=== PATIENT | female | born 1980 | race African-American/Black ===

== ENCOUNTER 2016-03-24 13:10 | Inpatient (IN) | payer OTHER ==
[2016-03-24] MEDS ORDERED: DINOPROSTONE 10 MG VAGINAL SUPPOSITORY VG ONE (14:30)
[2016-03-24 14:32] VITALS: BMI 33.6
--- NOTE | 2016-03-24 14:43 | HP ---
Past Medical History - Primary Care Physician PCP:: Marlene Wise - Admission Chief Complaint: Premature rupture of membranes History of Present Illness: 35 yo EDC 04/05/16 EGA 38.3 with premature rupture of membranes today Hx of AMA and inc AFP screening who declined testing History Source: Patient - Past Medical History ...: 2 ...Para: 0 ...Spon : 1 ...LMP: 06/29/09 ...EDC by Sono: 04/05/16 - Past Surgical History Past Surgical History: Yes: None Hx Myomectomy: No Hx Transabdominal Cerclage: No - Smoking History Smoking history: Never smoked Have you smoked in the past 12 months: No Aproximately how many cigarettes per day: 0 - Alcohol/Substance Use Hx Alcohol Use: No - Social History Usual Living Arrangement: Yes: With Spouse History of Recent Travel: No Home Medications - Allergies Allergies/Adverse Reactions: Allergies Allergy/AdvReac Type Severity Reaction Status Date / Time lactose Allergy Severe Verified 03/24/16 11:00 nut - unspecified Allergy Severe Swelling Verified 03/24/16 11:00 salmon Allergy Severe Difficulty Uncoded 03/24/16 11:00 Breathing - Home Medications Home Medications: Ambulatory Orders Vit/Iron Fumarate/FA [ Tablet] 1 each PO DAILY 03/24/16 Review of Systems - Review of Systems Constitutional: reports: No Symptoms Eyes: reports: No Symptoms HENT: reports: No Symptoms Neck: reports: No Symptoms Cardiovascular: reports: No Symptoms Respiratory: reports: No Symptoms Gastrointestinal: reports: No Symptoms Genitourinary: reports: No Symptoms Breasts: reports: No Symptoms Reported Musculoskeletal: reports: No Symptoms Integumentary: reports: No Symptoms Neurological: reports: No Symptoms Endocrine: reports: No Symptoms Hematology/Lymphatic: reports: No Symptoms Psychiatric: reports: No Symptoms Physical Exam - Maternity Vital Signs: Vital Signs Temperature 98.1 F 03/24/16 14:17 Pulse Rate 104 H 03/24/16 14:17 Respiratory Rate 20 03/24/16 14:17 Blood Pressure 145/87 03/24/16 14:17 O2 Sat by Pulse Oximetry (%) Constitutional: Yes: Well Nourished, No Distress Cardiovascular: Yes: WNL, Regular Rate and Rhythm Breast(s): Yes: WNL - Abdominal Exam/OB Fundal Height: 130 Number of Fetuses: Single Presentation: Vertex Contractions: No Monitor Mode: External Heart Rate Location: [facility] Category: I Decelerations: None - Vaginal Exam/OB Speculum Exam: No Dilatation (cm): FT Effacement (%): 80 Amniotic Membrane Status: Ruptured Nitrazine Test: Positive Presentation: Vertex/Position Station: -2 - Physical Exam Musculoskeletal: Yes: WNL Extremities: Yes: WNL Edema: No Hemorrhage Risk Assessment - Risk Factors Risk Score: 0 Risk Level: Low Risk Problem List - Problems (1) Premature rupture of membranes Code(s): O42.90 - VLADIMIR ROM, 7TH0 BETW RUPT & ONST LABR, UNSP WEEKS OF GEST Qualifiers: PROM gestational age: full term Assessment/Plan IUP at 38.2 weeks premature rupture of membranes Plan cervidil
[2016-03-24 15:10] LABS: BASOPHIL 0.2 % (0-2.0); MCH 25.3 pg (25.7-33.7)
[2016-03-24 15:19] LABS: EOSINOPHIL 0.1 % (0-4.5); MCHC 32.1 g/dl (32.0-36.0); MEAN CELL VOLUME 78.9 fl (80-96); MEAN PLT VOLUME 11.5 fl (7.5-11.1); NEUTROPHILS 72.4 % (42.8-82.8); PLATELET COUNT 168 K/MM3 (134-434); RDW 17.7 % (11.6-15.6); WHITE BLOOD COUNT 11.9 K/mm3 (4.0-10.0)
[2016-03-24 15:25] LABS: CALCIUM 9.1 mg/dL (8.5-10.1); CREATININE 0.8 mg/dL (0.55-1.02)
[2016-03-24 15:33] LABS: HIV 1 & 2 AB NEGATIVE; HIV 1 AGp24 NEGATIVE
[2016-03-24 15:42] LABS: INR 0.98 (0.82-1.09); PROTHROMBIN TIME (PATIENT) 10.8 SEC (9.98-11.88)
[2016-03-24] MEDS: DEXTROSE 5%-LACTATED RINGERS 1,000 ML IV SCH (20:57)
[2016-03-24] MEDS ORDERED: ELECTROLYTE-148 SOLN 1,000 ML IV SCH (23:00)
[2016-03-25] MEDS ORDERED: BENZOCAINE 28 GM HEMORRHOIDAL OINTMENT TP PRN (00:24)
[2016-03-25] MEDS ORDERED: BENZOCAINE 20% 57 GM BOTTLE TP PRN (00:24)
[2016-03-25] MEDS ORDERED: BISACODYL 10 MG SUPP.RECT RC PRN (00:24)
[2016-03-25] MEDS ORDERED: METHYLERGONOVINE MALEATE 0.2 MG/1 ML AMP IM PRN (00:24)
--- NOTE | 2016-03-25 00:27 | PN ---
Delivery - Delivery Vaginal Delivery: Spontaneous Episiotomy/Laceration: Midline EBL (cc): 350 Delivery, Single - [place] Feeding Plan Initial Plan: Exclusive throughout hospitalization Remarks - Remarks Remarks: of a live girl over midline episiotomy. Nose / Oropharynx suctioned @ perineum. Cord clamped and cut. Placenta expelled spontaneously intact. Midline episiotomy repaired with 2.0 chromic.
[2016-03-25] MEDS ORDERED: D5W-LR W/ 20 UNITS OXYTOCIN 1,000 ML IV SCH (00:30)
[2016-03-25] MEDS: ACETAMINOPHEN 325 MG TABLET (FP) PO PRN (02:36)
[2016-03-25] MEDS: IBUPROFEN 600 MG TABLET (FP) PO PRN ×2 (02:36→15:20)
[2016-03-25] MEDS: FERROUS SO4 325 MG TABLET (FP) PO SCH ×3 (08:00→18:23)
[2016-03-25] MEDS ORDERED: DIPHTH,PERTUSS(ACELL),TET 0.5 ML DISP.SYRIN IM ONE (10:00)
[2016-03-25] MEDS: PRENATAL VITAMINS W/ FOLIC ACID TABLET (FP) PO SCH (10:24)
[2016-03-25] MEDS: WITCH HAZEL 50% (TUCKS) 40 PAD/JAR PAD TP PRN (10:25)
[2016-03-25] MEDS: DEXTROSE 5%-LACTATED RINGERS 1,000 ML IV SCH (15:16)
--- NOTE | 2016-03-25 16:44 | PN ---
Post Note - Post Date of Delivery: 03/25/16 Post Day: 1 Vital Signs: Vital Signs - 24 hr 03/24/16 03/24/16 03/24/16 17:00 18:00 19:00 Temperature 98.6 F Pulse Rate 80 93 H 82 Respiratory 20 20 20 Rate Blood Pressure 144/71 129/79 136/78 O2 Sat by Pulse Oximetry (%) 03/24/16 03/24/16 03/24/16 20:00 21:00 22:00 Temperature 98.1 F 97.6 F Pulse Rate 96 H 84 88 Respiratory 20 20 20 Rate Blood Pressure 141/83 138/79 138/92 O2 Sat by Pulse Oximetry (%) 03/25/16 03/25/16 03/25/16 00:30 00:45 01:19 Temperature 98.1 F Pulse Rate 94 H 91 H 89 Respiratory 20 18 18 Rate Blood Pressure 142/75 130/77 146/75 O2 Sat by Pulse 99 100 100 Oximetry (%) 03/25/16 03/25/16 03/25/16 01:50 06:00 10:00 Temperature 98.4 F 9.4 F L 99.0 F Pulse Rate 84 110 H 106 H Respiratory 20 20 20 Rate Blood Pressure 124/75 124/86 135/83 O2 Sat by Pulse Oximetry (%) 03/25/16 14:00 Temperature 97.2 F L Pulse Rate 105 H Respiratory 20 Rate Blood Pressure 124/81 O2 Sat by Pulse Oximetry (%) Labs: Laboratory Results - last 24 hr 03/24/16 03/24/16 14:20 17:30 RPR Titer Nonreactive Blood Type O POSITIVE - Objective Afebrile: Yes Breast: Not engorged Abdomen: Soft, Non-tender Uterus: Fundus firm, Non-tender Vagina: Scant lochia Extremities: Non-tender - Assessment/Plan (1) Premature rupture of membranes Assessment: S/P Normal Plan: Routine Care
[2016-03-26] MEDS: ACETAMINOPHEN 325 MG TABLET (FP) PO PRN ×2 (05:19→21:32)
[2016-03-26] MEDS: IBUPROFEN 600 MG TABLET (FP) PO PRN ×2 (05:20→21:33)
--- NOTE | 2016-03-26 06:58 | DS ---
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: Vital Signs Temperature 98.8 F 03/25/16 21:13 Pulse Rate 98 H 03/25/16 21:13 Respiratory Rate 18 03/25/16 21:13 Blood Pressure 129/84 03/25/16 21:13 O2 Sat by Pulse Oximetry (%) 100 03/25/16 01:19 Constitutional: Yes: Well Nourished, No Distress Gastrointestinal: Yes: WNL, Normal Bowel Sounds, Soft ....Post : Yes: Uterus firm, Uterus non-tender Breast(s): Yes: WNL Extremities: Yes: WNL Edema: No Neurological: Yes: WNL, Alert, Oriented Labs: CBC, BMP 03/24/16 14:35 03/24/16 14:20 Delivery - Delivery Vaginal Delivery: Spontaneous Type of Anesthesia: Local Episiotomy/Laceration: Midline EBL (cc): 350 Delivery, Single - Stages of Labor Date 1st Stage Initiatied: 03/24/16 Time 1st Stage Initiated: 22:00 Date 2nd Stage Initiated: 03/24/16 Time 2nd Stage Initiated: 23:50 Date of Delivery: 03/25/16 Time of Delivery: 00:02 Time Placenta Delivered: 00:07 - Condition of Rn Mental Health/[employer] [place] Present: No Infant Gender: Female Weight: 6 lb 13 oz Position: Left, OA Total Hours ROM (Hrs/Mins): 12 hours and 32 minutes - 1 Minute Total Score: 8 5 Minutes Total Score: 9 - [place] Feeding Plan Initial Plan: Exclusive throughout hospitalization Discharge Summary Reason For Visit: INDUCTION OF LABOR Current Active Problems Premature rupture of membranes (Acute) Procedures: Principal: normal vaginal delivery Condition: Good - Instructions Diet, Activity, Other Instructions: Physical activity Resume your normal everyday activity as tolerated no heavy lifting or exercise until seen by your surgeon. You may walk unlimited deangelo of and climb stairs. You may resume driving the car when you feel safe and comfortable behind the wheel. No sexual activity as instructed. Wound care If you have a bandage, leave it on, and keep dry for 48-72 hours. After that time discard the outer bandage. If they are tapes on the skin under the out of bandage leave them in place. They will peel off in the next 7 to 10 days. Do Not Peel them off. You may shower the day after surgery. If there are tapes present on the skin, you may shower over them. Diet There are no dietary restrictions. Eat healthy, high-fiber foods. Drink 6 to 8 glasses of liquid each day. This will assist in keeping your bowels are regular. Pain management You may take Tylenol or acetaminophen or Ibuprofen (for example, Motrin, Advil etc.) from my pain prescription medication is ordered should be taken as prescribed for moderate to severe pain. Call MD for any of the following: Severe pain not relieved by medication Fever of 101 or higher Excessive bleeding or drainage on dressing Inability to urinate Referrals: Marlene Wise MD [Staff Physician] - Disposition: HOME - Home Medications Comprehensive Discharge Medication List: Ambulatory Orders Vit/Iron Fumarate/FA [ Tablet] 1 each PO DAILY 03/24/16
[2016-03-26] MEDS: FERROUS SO4 325 MG TABLET (FP) PO SCH ×3 (08:00→17:44)
[2016-03-26 08:39] LABS: MCH 25.2 pg (25.7-33.7); MCHC 31.8 g/dl (32.0-36.0); MEAN CELL VOLUME 79.4 fl (80-96); PLATELET COUNT 167 K/MM3 (134-434); RDW 17.9 % (11.6-15.6); WHITE BLOOD COUNT 22.9 K/mm3 (4.0-10.0)
[2016-03-26] MEDS: PRENATAL VITAMINS W/ FOLIC ACID TABLET (FP) PO SCH (10:41)
--- NOTE | 2016-03-26 11:17 | PN ---
Post Progress Note - Subjective Subjective: Pt seen today, no complaints. Pt with some cramping/soreness, but otherwise feels well. Tolerating diet, ambulating. Breast feeding without difficulty. VB minimal. Denies CP/SOB/F/C/PATEL. Type of Delivery: Vital Signs: Vital Signs Temperature 99.0 F 03/26/16 10:00 Pulse Rate 82 03/26/16 10:00 Respiratory Rate 20 03/26/16 10:00 Blood Pressure 133/72 03/26/16 10:00 O2 Sat by Pulse Oximetry (%) 100 03/25/16 01:19 Breast Exam: Yes: Soft Uterus: Yes: Fundus Firm, Fundus below umbilicus Abdomen/GI: Yes: Abdomen soft, Passing flatus, Tolerating PO. No: Abdominal Distention, Tender Lochia: Yes: Rubra Lochia, amount: Small Extremities: Yes: Calves non-tender. No: Edema Perineum: Yes: Episiotomy (repaired) Activity: Ambulating - Labs Labs: CBC WBC 22.9 K/mm3 (4.0-10.0) H D 03/26/16 06:30 RBC 3.28 M/mm3 (3.60-5.2) L D 03/26/16 06:30 Hgb 8.3 GM/dL (10.7-15.3) L D 03/26/16 06:30 Hct 26.0 % (32.4-45.2) L D 03/26/16 06:30 MCV 79.4 fl (80-96) L 03/26/16 06:30 MCHC 31.8 g/dl (32.0-36.0) L 03/26/16 06:30 RDW 17.9 % (11.6-15.6) H 03/26/16 06:30 Plt Count 167 K/MM3 (134-434) 03/26/16 06:30 MPV 11.0 fl (7.5-11.1) 03/26/16 06:30 Neutrophils % 64.0 % (42.8-82.8) 03/26/16 06:30 Lymphocytes % 33.0 % (8-40) D 03/26/16 06:30 Monocytes % 3.0 % (3.8-10.2) L 03/26/16 06:30 Eosinophils % 0.1 % (0-4.5) 03/24/16 14:35 Basophils % 0.2 % (0-2.0) 03/24/16 14:35 Problem List - Problems (1) Vaginal delivery Code(s): O80 - ENCOUNTER FOR FULL-TERM UNCOMPLICATED DELIVERY Assessment/Plan 35 y/o Post day 1 from normal - AFVSS - Hgb 8.3 post , pt stable, continue vitamins and start PO Iron BID - regular diet, PO pain meds, encourage ambulation - discharge home 03/27 in a.m.
[2016-03-26] MEDS ORDERED: SENNOSIDES/DOCUSATE COMBO (SENNA PLUS) TABLET (UD) PO PRN (22:00)
[2016-03-27 02:18] VITALS: PULSE 93
[2016-03-27] MEDS: FERROUS SO4 325 MG TABLET (FP) PO SCH (08:19)
--- NOTE | 2016-03-27 09:13 | PN ---
Post Progress Note - Subjective Subjective: she offers no complaints. Post Day: 2 Type of Delivery: Vital Signs: Vital Signs Temperature 97.7 F 03/26/16 22:00 Pulse Rate 93 H 03/26/16 22:00 Respiratory Rate 20 03/26/16 22:00 Blood Pressure 123/73 03/26/16 22:00 O2 Sat by Pulse Oximetry (%) 100 03/25/16 01:19 Breast Exam: Yes: Soft Uterus: Yes: Fundus Firm Abdomen/GI: Yes: Abdomen soft Lochia: Yes: Serosa Lochia, amount: Moderate Extremities: Yes: Calves non-tender Perineum: Yes: Intact Activity: Ambulating - Labs Labs: CBC WBC 22.9 K/mm3 (4.0-10.0) H D 03/26/16 06:30 RBC 3.28 M/mm3 (3.60-5.2) L D 03/26/16 06:30 Hgb 8.3 GM/dL (10.7-15.3) L D 03/26/16 06:30 Hct 26.0 % (32.4-45.2) L D 03/26/16 06:30 MCV 79.4 fl (80-96) L 03/26/16 06:30 MCHC 31.8 g/dl (32.0-36.0) L 03/26/16 06:30 RDW 17.9 % (11.6-15.6) H 03/26/16 06:30 Plt Count 167 K/MM3 (134-434) 03/26/16 06:30 MPV 11.0 fl (7.5-11.1) 03/26/16 06:30 Neutrophils % 64.0 % (42.8-82.8) 03/26/16 06:30 Lymphocytes % 33.0 % (8-40) D 03/26/16 06:30 Monocytes % 3.0 % (3.8-10.2) L 03/26/16 06:30 Eosinophils % 0.1 % (0-4.5) 03/24/16 14:35 Basophils % 0.2 % (0-2.0) 03/24/16 14:35 Assessment/Plan post normal vaginal delivery she offers no complaints . continue current care condition is stable plan to discharge home today f/u in 4 weeks continue vitamins
[2016-03-27] MEDS: PRENATAL VITAMINS W/ FOLIC ACID TABLET (FP) PO SCH (09:16)
[2016-03-27] MEDS: WITCH HAZEL 50% (TUCKS) 40 PAD/JAR PAD TP PRN (09:22)
[2016-03-27 11:44] VITALS: BP 121/75; TEMP 99.1
== END 2016-03-27 11:10 | disposition home or self-care (01) | DRG 775 ==
LOC: JLDR 13:10 → J3W 03-25 01:50
PROVIDERS: ADMIT Obstetrics & Gynecology; ATTEND Obstetrics & Gynecology
PROC: 10E0XZZ Delivery of Products of Conception, External Approach (ICD-10-PCS; principal; 2016-03-25)
PROC: 0W8NXZZ Division of Female Perineum, External Approach (ICD-10-PCS; 2016-03-25)
DX: O42.92 Full-term premature rupture of membranes, unspecified as to length of time between rupture and onset of labor (principal); O09.523 Supervision of elderly multigravida, third trimester; Z3A.38 38 weeks gestation of pregnancy; Z37.0 Single live birth
CPT/HCPCS: 36415; 59409; 80048; 85025; 85610; 85730; 86593; 86850; 86900; 86901; 87389; 90715